=== PATIENT | male | born 1925 | race Caucasian/White ===

== ENCOUNTER 2016-07-25 10:10 | Inpatient (IN) | payer MEDICARE ==
[2016-07-25 11:04] LABS: ABSOLUTE NEUTROPHIL COUNT 7.4 K/mm3 (1.8-7.7); BASO % 0.3 % (0.2-1.0); EOS % 0.4 % (0.9-2.9); HEMATOCRIT 32.3 % (32.0-52.0); HEMOGLOBIN 10.7 gm/l (14.0-18.0); IMM NEUT # 0.1 K/mm3 (0-0.2); IMM NEUT% 0.5 % (0-1); LYMPH # 0.8 (1.0-4.8); LYMPH % 7.5 % (15-45); MEAN CELL VOLUME 91.5 fl (80.0-94.0); MEAN CORPUSCULAR HEMOGLOBIN 30.3 pg (27.0-31.0); MEAN CORPUSCULAR HGB CONC 33.1 g/dl (33.0-37.0); MEAN PLATELET VOLUME 11.5 fl (7.4-10.4); MONO % 19.1 % (4-12); NEUT % 72.2 % (43-75); PLATELET COUNT 211 K/mm3 (130-400); RED CELL DISTRIBUTION WIDTH 12.5 % (11.5-14.5)
[2016-07-25] MEDS ORDERED: SODIUM CHLORIDE 0.9% 1,000 ML ONE (11:07)
[2016-07-25 11:13] LABS: ALBUMIN 3.1 gm/dL (3.5-5.7); CALCIUM 8.4 mg/dL (8.6-10.3)
--- NOTE | 2016-07-25 11:22 | RAD ---
07/25/2016 11:15 AM CHEST - 2 VIEWS History: Cough, fever Comparison: Films dating back to 10/02/2009 Findings: Two views of the chest are obtained. The lungs demonstrate possible patchy airspace disease at the right base. Blunting of the right costophrenic angle is stable. Calcified pleural plaques are also noted, as seen on multiple prior studies. The cardiomediastinal silhouette is unremarkable.. The osseous structures are intact.. IMPRESSION: Possible airspace disease at the right base. Other stable findings as above..
[2016-07-25] MEDS ORDERED: ALBUTEROL/IPRATROPIUM 2.5/0.5 MG 3 ML/EACH DOSE ONE (11:29)
--- NOTE | 2016-07-25 11:29 | CT ---
HEAD W/O CON: 07/25/2016 11:03 AM CLINICAL HISTORY: Patient status post fall. COMPARISON: 01/30/2015 TECHNIQUE: Contiguous axial 5 mm images from skull base to the vertex were obtained without IV contrast. Sagittal and coronal reformations with bone algorithm images were also obtained at this time. CT DI:: 51.7 DLP: 887.3 FINDINGS: Infarct: None Extra axial spaces: Normal in size and morphology for the patient's age. Hemorrhage: None. Ventricular system: Normal in size and morphology for the patient's age. Basal cisterns: Normal. Cerebral parenchyma: Moderate atrophy and small vessel occlusive changes again noted.. Midline shift: None. Cerebellum: Normal. Brainstem: Normal. OTHER: Calvarium: Normal. Vascular system: Normal. Visualized Paranasal sinuses and Mastoid air cells: Mucosal thickening is present throughout the visualized ethmoid and sphenoid sinuses. Opacification of many of the ethmoid air cells is noted. There may be an air-fluid level within the right maxillary sinus. Visualized Orbits and regional soft tissues: Normal. IMPRESSION: No acute intracranial process. Stable atrophy and small vessel occlusive change. Sinus disease as above. Findings were called to Dr. Tobar at approximately 1126 hours on 07/25/2016.
[2016-07-25 11:32] LABS: TROPONIN I < 0.01 ng/ml (0.0-0.06)
[2016-07-25 11:37] LABS: CKMB ISOENZYME 0.8 ng/ml (0.6-6.3)
[2016-07-25] MEDS ORDERED: CEFTRIAXONE 1 GRAM DUPLEX 50 ML IV ONE (13:19)
[2016-07-25] MEDS ORDERED: AZITHROMYCIN 500 MG VIAL ONE (13:19)
[2016-07-25] MEDS ORDERED: SODIUM CHLORIDE 0.9% 250 ML IV ONE (13:22)
[2016-07-25 14:07] VITALS: BMI 22.3
[2016-07-25] MEDS ORDERED: BISACODYL 5 MG TABLET.EC PO PRN (14:14)
[2016-07-25] MEDS ORDERED: ALBUTEROL NEB 2.5 MG/3 ML VIAL.NEB NEB PRN (14:14)
[2016-07-25] MEDS ORDERED: MENTHOL/CETYLPYRD 1 EACH LOZENGE PO PRN (14:14)
[2016-07-25] MEDS ORDERED: BISACODYL 10 MG SUP PR PRN (14:14)
[2016-07-25] MEDS ORDERED: ACETAMINOPHEN 325 MG TABLET PO PRN (14:14)
[2016-07-25] MEDS ORDERED: AZITHROMYCIN 500 MG in SODIUM CHLORIDE 0.9% 250 ML IV SCH (14:14)
[2016-07-25] MEDS ORDERED: MAGNESIUM HYDROXIDE 30 ML UDCUP PO PRN (14:14)
[2016-07-25] MEDS ORDERED: BLISTEX LIPSTICK 1 EACH TP PRN (14:14)
[2016-07-25] MEDS: ENOXAPARIN SODIUM 40 MG/0.4 ML SYRINGE SUB-Q SCH (15:03)
--- NOTE | 2016-07-25 16:47 | HP ---
YASMIN PÉREZ [id number] DATE OF ADMISSION: July 25, 2016 CHIEF COMPLAINT: Cough. HISTORY OF PRESENT ILLNESS: The patient is an 89-year-old male with a past medical history significant for diabetes, hypertension, and senile dementia brought to the [facility] Emergency Department by his family due to concerns about worsening cough and chills. He has had upper respiratory symptoms for the past two weeks now, and his reports that in the last four days his cough has become worse with chills and increased weakness. His cough is productive of yellow sputum. He was brought by private vehicle to the emergency department today where workup showed evidence of an infiltrate involving the right lower lobe. REVIEW OF SYSTEMS: His review of systems is significant for chills over the last couple of days. He has had nasal congestion but no ear pain or sore throat. He has had some purulent drainage from the tear ducts of his eyes. He has had a cough and some mild dyspnea on exertion. No chest pain, orthopnea, or lower extremity edema, no palpitations. No nausea or vomiting, no abdominal pain, diarrhea or constipation. He has had a poor appetite. He has had no new arthralgias. He denies any headaches, fainting, blackouts or seizures. No urinary complaints. He did trip over his blanket about three days ago and fell on the floor hitting his forehead. There was no loss of consciousness. Review of systems is otherwise negative. PAST MEDICAL HISTORY: 1. He has had no recent hospitalization. He was last hospitalized here in January,, for transient ischemic attack symptoms. 2. He has had a history of transient ischemic attacks in the past as well. 3. He has been followed for the last 16 years for diabetes managed with oral medications. 4. He has a history of hypertension which has been stable. 5. Gastroesophageal reflux disease, stable. 6. Hypothyroidism, also stable. 7. 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 8. 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 PAST SURGICAL HISTORY: Significant for: 1. Peace fundoplication years ago. 2. Cataract surgery. 3. He has never had a colonoscopy. ALLERGIES: DOCUMENTED TO [place]. CURRENT MEDICATIONS: His medications consist of; 1. Full strength aspirin 325 mg daily. 2. Amlodipine 2.5 mg daily. 3. Lisinopril 20 mg twice daily. 4. Levothyroxine 100 mcg daily. 5. Amaryl 2 mg daily. 6. Proscar 5 mg daily. 7. Flomax 0.4 mg daily. 8. Prilosec 20 mg daily. 9. Metformin 1000 mg twice daily. FAMILY HISTORY: Significant for a father who of prostate cancer. His mother had a stroke at the age of 62. SOCIAL HISTORY: He quit smoking in 1957 after approximately 25 pack-year history. He is and has been so for over 60 years. He is a retired flower. He is also a of the [employer]. There is no history of any alcohol use and no illicit drug use. He is independent with his activities of daily living. He has a POLST form indicating limited additional interventions but DO NOT INTUBATE or attempt resuscitation if he has a cardiac arrest. His primary care provider is Dr. Abel Osborne. PHYSICAL EXAMINATION: VITAL SIGNS: Vitals show a body mass index of 22, weight is 57.2 kilograms. Temperature is 98.3, pulse 74, blood pressure 136/63, respirations 20, oxygen saturation are 90% on room air and 95% on two liters. GENERAL: This is an elderly male in no acute distress. HEENT: Exam is unremarkable. NECK: Is supple without lymphadenopathy or thyromegaly. CHEST: Lungs reveal some rhonchi over the right base. CARDIOVASCULAR: Exam reveals a regular rate and rhythm without a murmur. ABDOMEN: Soft, nontender, nondistended with positive bowel sounds. EXTREMITIES: Show no peripheral edema. GENITOURINARY: Exam is deferred. RECTAL: Exam is deferred. SKIN: Shows no rashes. NEUROLOGIC: Exam is nonfocal. He is alert and oriented to person, place and time including the year and the month. DIAGNOSTIC IMAGING STUDIES: Included: 1. A CT of the brain showing some atrophy but no acute findings. 2. Chest x-ray shows a right basilar airspace density. LABORATORY STUDIES: Included a CBC with a white count of 10.2, hemoglobin of 10.7, platelet count 211,000, lactate is normal. Chemistry profile shows sodium of 135, potassium 3.7, BUN 13, creatinine 0.8, glucose 196. Liver function tests are normal. Cardiac enzymes are negative. Influenza A and B screenings are negative. ASSESSMENT: Patient has community acquired bacterial pneumonia organism unknown involving the right lower lobe. He is being treated with Rocephin and Zithromax. Blood culture and sputum culture have been obtained. PLAN: 1. He is admitted to the medical/surgical unit. Anticipate a stay of two to three days. 2. He has diabetes, adequately controlled. We will continue his usual medications. 3. He has chronic essential hypertension also adequately controlled. We will continue his usual medications. 4. Gastroesophageal reflux disease, stable. Continue medications. 5. Hypothyroidism, stable. Continue medications. 6. Senile dementia, stable. 7. He has some generalized weakness, and we will ask for physical therapy and occupational therapy to evaluate and treat the patient in the next day or so. 8. Further treatment and recommendations will depend on his hospital course. cc: Abel Osborne M.D.
[2016-07-25] MEDS: METFORMIN HCL 1,000 MG TABLET PO SCH (20:16)
[2016-07-25] MEDS: DOCUSATE SODIUM 100 MG CAPSULE PO SCH (20:16)
[2016-07-25] MEDS: LISINOPRIL 20 MG TABLET PO SCH (22:40)
[2016-07-26 06:17] LABS: BASO % 0.4 % (0.2-1.0); EOS # 0.2 (0.0-0.5); EOS % 1.6 % (0.9-2.9); HEMATOCRIT 31.8 % (32.0-52.0); HEMOGLOBIN 10.5 gm/l (14.0-18.0); IMM NEUT # 0.1 K/mm3 (0-0.2); IMM NEUT% 0.8 % (0-1); LYMPH % 8.7 % (15-45); MEAN CORPUSCULAR HEMOGLOBIN 30.7 pg (27.0-31.0); MEAN PLATELET VOLUME 11.7 fl (7.4-10.4); MONO # 1.7 (0.0-0.8); MONO % 15.2 % (4-12); NEUT % 73.3 % (43-75); PLATELET COUNT 232 K/mm3 (130-400); RED CELL DISTRIBUTION WIDTH 12.6 % (11.5-14.5)
[2016-07-26 06:40] LABS: CALCIUM 8.2 mg/dL (8.6-10.3)
[2016-07-26] MEDS: LEVOTHYROXINE SODIUM 100 MCG TABLET PO SCH (06:59)
[2016-07-26] MEDS: INSULIN ASPART (DOSE) 100 UNITS/1 ML SUB-Q PRN (07:05)
[2016-07-26] MEDS: LISINOPRIL 20 MG TABLET PO SCH ×2 (08:37→21:43)
[2016-07-26] MEDS: DOCUSATE SODIUM 100 MG CAPSULE PO SCH ×2 (08:37→21:43)
[2016-07-26] MEDS: PANTOPRAZOLE 40 MG TABLET DR PO SCH (08:37)
[2016-07-26] MEDS: GLIMEPIRIDE 4 MG TABLET PO SCH (08:37)
[2016-07-26] MEDS: TAMSULOSIN HCL 0.4 MG CAPSULE.DR PO SCH (08:38)
[2016-07-26] MEDS: METFORMIN HCL 1,000 MG TABLET PO SCH ×2 (08:38→21:43)
[2016-07-26] MEDS: AMLODIPINE BESYLATE 5 MG TABLET PO SCH (08:38)
[2016-07-26] MEDS: ASPIRIN (ENTERIC COATED) 325 MG TABLET.EC PO SCH (08:38)
[2016-07-26] MEDS: FINASTERIDE 5 MG TABLET PO SCH (08:38)
[2016-07-26] MEDS ORDERED: PUMP TUBING ONE (10:30)
[2016-07-26] MEDS: AZITHROMYCIN 500 MG in SODIUM CHLORIDE 0.9% 250 ML IV SCH (10:37)
[2016-07-26] MEDS: SODIUM CHLORIDE 0.9% 100 ML IV PRN (10:37)
[2016-07-26] MEDS: CEFTRIAXONE 1 GRAM DUPLEX 1 G in Premix (D5W) 50 ml 1 EACH IV SCH (11:56)
--- NOTE | 2016-07-26 13:12 | PDOC43 ---
- Subjective Chief Complaint: Cough Patient sleeping, and daughter at bedside. His says he is much improved this morning. Cough still present and patient denies any shortness of breath. Denies any pain, is tolerating diet. Subjective: Reports Pain Tolerable, Reports Tolerating Diet Well, Reports Cough , Denies Shortness of Breath, Denies Chest Pain, Denies Abdominal Pain - Objective Vital Signs Temperature 98.8 F 07/26/16 07:05 Pulse Rate 73 07/26/16 07:05 Respiratory Rate 26 07/26/16 07:05 Blood Pressure 135/84 07/26/16 07:05 O2 Saturation by Pulse Oximetry 94 07/26/16 07:05 Oxygen Delivery Method Nasal Cannula Oxygen Flow Rate 2 Intake and Output 07/24/16 07/25/16 07/26/16 23:59 23:59 23:59 Intake Total 500 Output Total 350 450 Balance -350 50 General: Alert, Cooperative, Other (oriented to self, time of year, recognizes family members), No Acute Distress HEENT: PERRLA, EOMI, Other (dry mucus membranes, hematoma left frontal above eyelid), No Atraumatic Lungs: Other (B/L base crackles, no wheezing) Cardiovascular: Regular Rate and Rhythm, Normal S1, Normal S2 Abdomen: Soft, No Rigid, No Tenderness, No Rebounding, No Non-Distended Extremities: No Cyanosis, No Edema, No Tenderness Peripheral Pulses: Posterior Tibialis (L): 2+, Posterior Tibialis (R): 2+ Neurological: Normal Speech Psych/Mental Status: Normal Mood Laboratory 07/26/16 05:30 07/26/16 05:30 07/26/16 07/26/16 07/25/16 06:59 05:30 20:11 RBC 3.42 L Estimated GFR 106 H POC Capillary Glucose 164 H 189 H Calcium 8.2 L 07/25/16 17:41 RBC Estimated GFR POC Capillary Glucose 141 H Calcium Current Medications: Current meds reviewed in EMR. - Problems: Assessment/Plan (1) Pneumonia Qualifiers: Pneumonia type: due to unspecified organism Laterality: right Lung location: lower lobe of lung Qualifier Code: (J18.1) Lobar pneumonia, unspecified organism Status: AcuteAssessment/Plan: CAP on rocephin and azithromycin, still requiring supplemental O2 but mentation improving. (2) Diabetes mellitus, type II Qualifiers: Diabetes mellitus complication status: without complication Diabetes mellitus top lift compressor insulin use: without senior care use Qualifier Code: (E11.9 ) Type 2 diabetes mellitus without complications Status: ChronicAssessment/ Plan: PO medications (3) Pulmonary asbestosis Status: ChronicAssessment/Plan: Complicating pulmonary recovery (4) TIA (transient ischemic attack) Qualifiers: Transient cerebral ischemia type: unspecified Qualifier Code: (G45.9) Transient cerebral ischemic attack, unspecified Status: ChronicAssessment/ Plan: stable (5) Dementia Qualifiers: Dementia type: Alzheimer's disease Alzheimer's disease onset: other onset Dementia behavioral disturbance: without behavioral disturbance Qualifier Code: (G30.8) Other Alzheimer's disease Status: ChronicAssessment/ Plan: complicates mental status exam and determination of patient's baseline mental status (6) Hypertension Qualifiers: Hypertension type: essential hypertension Qualifier Code: (I10) Essential (primary) hypertension Status: ChronicAssessment/Plan: stable (7) Hypothyroidism Qualifiers: Hypothyroidism type: acquired Qualifier Code: (E03.9) Hypothyroidism, unspecified Status: ChronicAssessment/Plan: stable (8) GERD (gastroesophageal reflux disease) Qualifiers: Esophagitis presence: without esophagitis Qualifier Code: (K21.9) Gastro-esophageal reflux disease without esophagitis Status: Chronic Assessment/Plan: stable (9) Hematoma and contusion Status: AcuteAssessment/Plan: left forehead. CT did not reveal intracranial damage. Monitor for symptoms of concussion or increasing bleeding
[2016-07-26] MEDS: ENOXAPARIN SODIUM 40 MG/0.4 ML SYRINGE SUB-Q SCH (16:12)
[2016-07-27 06:14] LABS: ABSOLUTE NEUTROPHIL COUNT 8.8 K/mm3 (1.8-7.7); BASO % 0.4 % (0.2-1.0); EOS # 0.2 (0.0-0.5); EOS % 1.4 % (0.9-2.9); HEMATOCRIT 29.3 % (32.0-52.0); HEMOGLOBIN 9.7 gm/l (14.0-18.0); IMM NEUT # 0.1 K/mm3 (0-0.2); IMM NEUT% 1.1 % (0-1); LYMPH % 8.8 % (15-45); MEAN CELL VOLUME 91.6 fl (80.0-94.0); MEAN CORPUSCULAR HEMOGLOBIN 30.3 pg (27.0-31.0); MEAN CORPUSCULAR HGB CONC 33.1 g/dl (33.0-37.0); MEAN PLATELET VOLUME 11.2 fl (7.4-10.4); MONO # 1.3 (0.0-0.8); MONO % 11.4 % (4-12); NEUT % 76.9 % (43-75); PLATELET COUNT 255 K/mm3 (130-400); RED CELL DISTRIBUTION WIDTH 12.3 % (11.5-14.5)
[2016-07-27 06:42] LABS: CALCIUM 8.2 mg/dL (8.6-10.3)
[2016-07-27] MEDS: LEVOTHYROXINE SODIUM 100 MCG TABLET PO SCH (07:10)
[2016-07-27] MEDS: INSULIN ASPART (DOSE) 100 UNITS/1 ML SUB-Q PRN (07:26)
[2016-07-27 07:30] VITALS: BP 134/64
[2016-07-27] MEDS: TAMSULOSIN HCL 0.4 MG CAPSULE.DR PO SCH (08:48)
[2016-07-27] MEDS: AMLODIPINE BESYLATE 5 MG TABLET PO SCH (08:49)
[2016-07-27] MEDS: GLIMEPIRIDE 4 MG TABLET PO SCH (08:49)
[2016-07-27] MEDS: PANTOPRAZOLE 40 MG TABLET DR PO SCH (08:49)
[2016-07-27] MEDS: DOCUSATE SODIUM 100 MG CAPSULE PO SCH (08:49)
[2016-07-27] MEDS: FINASTERIDE 5 MG TABLET PO SCH (08:49)
[2016-07-27] MEDS: LISINOPRIL 20 MG TABLET PO SCH (08:49)
[2016-07-27] MEDS: ASPIRIN (ENTERIC COATED) 325 MG TABLET.EC PO SCH (08:49)
[2016-07-27] MEDS: METFORMIN HCL 1,000 MG TABLET PO SCH (08:49)
[2016-07-27] MEDS ORDERED: PUMP TUBING ONE (10:41)
[2016-07-27] MEDS: SODIUM CHLORIDE 0.9% 100 ML IV PRN (10:44)
[2016-07-27] MEDS: AZITHROMYCIN 500 MG in SODIUM CHLORIDE 0.9% 250 ML IV SCH (10:44)
[2016-07-27] MEDS: CEFTRIAXONE 1 GRAM DUPLEX 1 G in Premix (D5W) 50 ml 1 EACH IV SCH (12:20)
--- NOTE | 2016-07-27 17:48 | DS ---
YASMIN PÉREZ [facility] [id number] DATE OF ADMISSION: 07/25/2016 DATE OF DISCHARGE: 07/27/2016 DISCHARGE DIAGNOSES: 1. Right lower lobe pneumonia, with mild hypoxia. 2. Dermatitis on the torso, possibly allergic reaction versus a heat rash. OTHER DIAGNOSES: Include: 1. Senile dementia. 2. Adult-onset diabetes, controlled with oral medications. 3. Chronic essential hypertension. 4. Gastroesophageal reflux disease. 5. Hypothyroidism. 6. Benign prostatic hypertrophy. TO SUMMARIZE THE ADMISSION AND HOSPITAL COURSE: The patient is an 89-year-old male who presented with complaints of worsening cough and weakness. Workup in the emergency department showed evidence of bacterial pneumonia with a right lower lobe infiltrate. He was found to be mildly hypoxic. He was referred to the Hospitalist Service for admission. During his hospital stay he was treated with Rocephin and three doses of IV Zithromax. He was seen by physical therapy and occupational therapy and by 07/27/2016 was able to ambulate with standby assist all the way down the [place] and back. He had been afebrile for over 24 hours and was felt to be medically stable for discharge home at that time. DISCHARGE EXAMINATION: VITAL SIGNS: Vitals at discharge show a temperature of 98.0, pulse 74, blood pressure 134/64, respirations 20 and oxygen saturation is 92-94% on room air. Body mass index is 22.3 and weight is 57.2 kilograms. GENERAL: This is a thin elderly male in no acute distress. HEENT: Shows moist pink oral mucosa. LUNGS: Reveal some rhonchi over the right base, otherwise clear. CARDIOVASCULAR: Reveals a regular rate and rhythm, without a murmur. ABDOMEN: Soft, nontender and nondistended, with positive bowel sounds. EXTREMITIES: Showed no peripheral edema. SKIN: Shows an erythematous macular rash scattered on the torso, mainly on the back. No vesicles are present. No dermatomal distribution is seen. No drainage is present. LABORATORY STUDIES: White count showed mildly persistent leukocytosis at 11.4, hemoglobin of 29.3 and a platelet count of 255,000. Chemistry profile showed a sodium of 132, potassium 3.7 and creatinine 0.8. DISPOSITION: Home. DISCHARGE CONDITION: Good. DISCHARGE MEDICATIONS: He is prescribed: 1. Omnicef 300 mg twice daily for ten more days. 2. He has been given a prednisone prescription to take 40 mg daily for two days, followed by 20 mg daily for four days if his rash is getting worse. He is going to resume: 1. Metformin 1,000 mg twice a day. 2. Prilosec 20 mg daily. 3. Flomax 0.4 mg daily. 4. Proscar 5 mg daily. 5. Glimepiride 2 mg daily. 6. Levothroid 100 mcg daily. 7. Lisinopril 20 mg twice daily. 8. Norvasc 2.5 mg daily. 9. Aspirin 325 mg enteric-coated once daily. PLAN: He will follow-up with Dr. Abel Osborne on 08/04/2016 at 9:50 A.M., and has been referred to [facility] for PT and OT to evaluate and treat. cc: Dr. Abel Osborne
== END 2016-07-27 15:33 | disposition home or self-care (01) | DRG 194 ==
LOC: ED 10:10 → MS 12:14
PROVIDERS: ADMIT Family Medicine; ATTEND Family Medicine
DX: J18.9 Pneumonia, unspecified organism (principal); G45.9 Transient cerebral ischemic attack, unspecified; R09.02 Hypoxemia; L30.9 Dermatitis, unspecified; E11.9 Type 2 diabetes mellitus without complications; Z79.84 Long term (current) use of oral hypoglycemic drugs; I10 Essential (primary) hypertension; K21.9 Gastro-esophageal reflux disease without esophagitis; E03.9 Hypothyroidism, unspecified; N40.0 Benign prostatic hyperplasia without lower urinary tract symptoms; G30.8 Other Alzheimer's disease; F02.80 Dementia in other diseases classified elsewhere, unspecified severity, without behavioral disturbance, psychotic disturbance, mood disturbance, and anxiety; S00.83XA Contusion of other part of head, initial encounter; Z85.46 Personal history of malignant neoplasm of prostate